=== PATIENT | male | born 1950 | race Caucasian/White ===

== ENCOUNTER 2020-01-31 16:05 | Emergency (ER) | payer MEDICARE ==
[2020-01-31] MEDS ORDERED: PANTOPRAZOLE 40 MG/10 ML VIAL IVP STA (16:20)
[2020-01-31] MEDS ORDERED: SODIUM CHLORIDE 0.9% 1,000 ML IV STA (16:20)
[2020-01-31] MEDS ORDERED: ONDANSETRON 4 MG/2 ML VIAL IVP STA (16:20)
[2020-01-31] MEDS ORDERED: METOCLOPRAMIDE 5 MG/ML 2 ML VIAL IVP STA (16:26)
[2020-01-31] MEDS ORDERED: diphenhydrAMINE 50 MG/ML 1 ML VIAL IVP STA (16:26)
--- NOTE | 2020-01-31 16:31 | ED ---
Nausea/Vomiting/Diarrhea HPI - General Chief complaint: Nausea/Vomiting/Diarrhea Stated complaint: Nausea, weakness Time Seen by Provider: 01/31/20 16:12 Source: patient, EMS Mode of arrival: EMS Limitations: no limitations - History of Present Illness Initial comments: Patient is 69-year-old male presenting to the emergency Department with chief complaint of nausea or vomiting. Patient reports he developed nausea with one episode of nonbilious, nonbloody diarrhea half hour after he ate at [facility] [employer]. Patient states she has some chili dogs at around 1400. Patient reports on the way home he developed some nausea and some sweats which was followed by vomiting. Patient reports he went to an urgent care and then was brought to emergency Department with any movements. Patient states she was given some medication in the ambulance but he is still slightly nauseous. He denies any chest pain, shortness of breath, abdominal pain, diarrhea. Denies any hematuria, hematochezia or melena. Denies any lightheadedness, dizziness, one- sided weakness or paresthesias, visual changes. Reports history of colectomy many years ago following complications of diverticulitis. - Related Data Home Medications Medication Instructions Recorded Confirmed Clopidogrel [Plavix] 75 mg PO DAILY 11/18/13 04/26/15 Eplerenone 25 mg PO DAILY 11/18/13 04/26/15 Metoprolol Succinate [Toprol XL] 50 mg PO DAILY 11/18/13 04/26/15 Simvastatin [Zocor] 20 mg PO HS 11/18/13 04/26/15 Timolol [Betimol] 5 ml OP BID 11/18/13 04/26/15 lisinopriL 30 mg PO DAILY 11/18/13 04/26/15 Previous Rx's Medication Instructions Recorded Amoxicillin/Potassium Clav 1 each PO Q12HR #20 tab 11/18/13 [Augmentin 875-125 Tablet] Ondansetron Odt [Zofran Odt] 4 mg PO Q8HR PRN #14 tab 01/31/20 Allergies Allergy/AdvReac Type Severity Reaction Status Date / Time No Known Allergies Allergy Verified 04/26/15 14:24 Review of Systems ROS Statement: Those systems with pertinent positive or pertinent negative responses have been documented in the HPI. ROS Other: All systems not noted in ROS Statement are negative. Past Medical History Past Medical History: Coronary Artery Disease (CAD), CVA/TIA, Hyperlipidemia, Hypertension History of Any Multi-Drug Resistant Organisms: None Reported Past Surgical History: Cholecystectomy, Orthopedic Surgery Additional Past Surgical History / Comment(s): lens implants, section of lg intestine removed Past Psychological History: No Psychological Hx Reported Smoking Status: Former smoker Past Alcohol Use History: None Reported Past Drug Use History: None Reported General Exam Limitations: no limitations General appearance: alert, in no apparent distress Head exam: Present: atraumatic, normocephalic, normal inspection Eye exam: Present: normal appearance, PERRL, EOMI Pupils: Present: normal accommodation ENT exam: Present: normal exam, normal oropharynx, mucous membranes moist Neck exam: Present: normal inspection, full ROM. Absent: tenderness Respiratory exam: Present: normal lung sounds bilaterally. Absent: respiratory distress, wheezes, rales Cardiovascular Exam: Present: regular rate, normal rhythm, normal heart sounds GI/Abdominal exam: Present: soft, normal bowel sounds. Absent: distended, tenderness, guarding, rebound, rigid, diminished bowel sounds, hyperactive bowel sounds, organomegaly, mass, bruit, pulsatile mass, hernia Extremities exam: Present: normal inspection, full ROM, normal capillary refill, other (+2 ulnar and radial pulses bilaterally.). Absent: tenderness Back exam: Present: normal inspection, full ROM. Absent: tenderness, CVA tenderness (R), CVA tenderness (L), paraspinal tenderness, vertebral tenderness Neurological exam: Present: alert, oriented X3 Psychiatric exam: Present: normal affect, normal mood Skin exam: Present: warm, dry, intact, normal color Course Vital Signs 01/31/20 16:09 Temperature 97.9 F Pulse Rate 61 Respiratory 18 Rate Blood Pressure 134/62 O2 Sat by Pulse 97 Oximetry Medical Decision Making - Medical Decision Making Patient is 69-year-old male presenting to the emergency room with a chief complaint of nausea or vomiting. On exam patient has no abdominal, back pain chest pain shortness of breath. Patient has developed the symptoms after he ate some chili dogs the cornea on. Patient was given antiemetics and fluids. Reevaluation patient reports improvement of symptoms. States he feels comfortable going home. CBC CMP and UA are unremarkable. Strict return parameters were thoroughly discussed with patient is worsening agreeable. Case discussed physician. - Lab Data Result diagrams: 01/31/20 16:23 01/31/20 16:23 Lab Results 01/31/20 01/31/20 01/31/20 Range/Units 16:23 16:23 16:28 WBC 7.5 (3.8-10.6) k/uL RBC 4.33 (4.30-5.90) m/uL Hgb 12.7 L (13.0-17.5) gm/dL Hct 36.9 L (39.0-53.0) % MCV 85.3 (80.0-100.0) fL MCH 29.2 (25.0-35.0) pg MCHC 34.2 (31.0-37.0) g/dL RDW 12.6 (11.5-15.5) % Plt Count 164 (150-450) k/uL Neutrophils % 70 % Lymphocytes % 21 % Monocytes % 6 % Eosinophils % 2 % Basophils % 1 % Neutrophils # 5.2 (1.3-7.7) k/uL Lymphocytes # 1.6 (1.0-4.8) k/uL Monocytes # 0.4 (0-1.0) k/uL Eosinophils # 0.1 (0-0.7) k/uL Basophils # 0.0 (0-0.2) k/uL Sodium 137 (137-145) mmol/L Potassium 4.1 (3.5-5.1) mmol/L Chloride 106 (98-107) mmol/L Carbon Dioxide 26 (22-30) mmol/L Anion Gap 5 mmol/L BUN 19 (9-20) mg/dL Creatinine 0.88 (0.66-1.25) mg/dL Est GFR (CKD-EPI)AfAm >90 (>60 ml/min/1.73 sqM) Est GFR (CKD-EPI)NonAf 87 (>60 ml/min/1.73 sqM) Glucose 135 H (74-99) mg/dL Calcium 9.2 (8.4-10.2) mg/dL Total Bilirubin 0.6 (0.2-1.3) mg/dL AST 29 (17-59) U/L ALT 17 (4-49) U/L Alkaline Phosphatase 56 (38-126) U/L Total Protein 6.4 (6.3-8.2) g/dL Albumin 3.9 (3.5-5.0) g/dL Lipase 112 (23-300) U/L Urine Color Yellow Urine Appearance Clear (Clear) Urine pH 5.5 (5.0-8.0) Ur Specific [place] 1.026 (1.001-1.035) Urine Protein Negative (Negative) Urine Glucose (UA) Negative (Negative) Urine Ketones Negative (Negative) Urine Blood Negative (Negative) Urine Nitrite Negative (Negative) Urine Bilirubin Negative (Negative) Urine Urobilinogen <2.0 (<2.0) mg/dL Ur Leukocyte Esterase Negative (Negative) - EKG Data EKG Comments: Sinus rhythm, right bundle branch block. Ventricular rate 62, AL 198, QRS 150, QTC 460. Disposition Clinical Impression: Food poisoning, Nausea & vomiting, Gastritis Disposition: HOME SELF-CARE Condition: Stable Instructions (If sedation given, give patient instructions): Acute Nausea and Vomiting (ED) Additional Instructions: Drink lots of fluids. Take medication as directed. Return to emergency depar tment if symptoms worsen. Prescriptions: Ondansetron Odt [Zofran Odt] 4 mg PO Q8HR PRN #14 tab PRN Reason: Nausea Is patient prescribed a controlled substance at d/c from ED?: No Referrals: None,Stated [Primary Care Provider] - 1-2 days Time of Disposition: 17:24
[2020-01-31 16:33] LABS: Basophils % (A) 1 %; Eosinophils # (A) 0.1 k/uL (0-0.7); Eosinophils % (A) 2 %; HCT 36.9 % (39.0-53.0); HGB 12.7 gm/dL (13.0-17.5); Lymphocytes # (A) 1.6 k/uL (1.0-4.8); Lymphocytes % (A) 21 %; MCH 29.2 pg (25.0-35.0); MCHC 34.2 g/dL (31.0-37.0); MCV 85.3 fL (80.0-100.0); Mean Platelet Volume 7.4; Monocytes # (A) 0.4 k/uL (0-1.0); Monocytes % (A) 6 %; Neutrophils # (A) 5.2 k/uL (1.3-7.7); Neutrophils % (A) 70 %; Platelet Count 164 k/uL (150-450); RBC 4.33 m/uL (4.30-5.90); RDW 12.6 % (11.5-15.5); WBC 7.5 k/uL (3.8-10.6)
[2020-01-31 16:41] LABS: ALT 17 U/L (4-49); AST 29 U/L (17-59); African American GFR (CKD) >90 (>60 ml/min/1.73 sqM); Albumin 3.9 g/dL (3.5-5.0); Alkaline Phosphatase 56 U/L (38-126); Anion Gap 5 mmol/L; Blood Urea Nitrogen 19 mg/dL (9-20); Calcium 9.2 mg/dL (8.4-10.2); Carbon Dioxide 26 mmol/L (22-30); Chloride 106 mmol/L (98-107); Glucose 135 mg/dL (74-99); Non-African American GFR(CKD) 87 (>60 ml/min/1.73 sqM); Potassium 4.1 mmol/L (3.5-5.1); Sodium 137 mmol/L (137-145); Total Bilirubin 0.6 mg/dL (0.2-1.3); Total Protein 6.4 g/dL (6.3-8.2)
[2020-01-31 16:43] LABS: Appearance,Urine Clear (Clear); Bilirubin,Urine Negative (Negative); Blood,Urine Negative (Negative); Color,Urine Yellow; Glucose,Urine (UA) Negative (Negative); Ketones,Urine Negative (Negative); Leukocyte Esterase,Urine Negative (Negative); Nitrite,Urine Negative (Negative); PH, Urine 5.5 (5.0-8.0); Protein,Urine Negative (Negative); Specific Gravity,Urine 1.026 (1.001-1.035); Urobilinogen,Urine <2.0 mg/dL (<2.0)
[2020-01-31 17:39] VITALS: BP 141/72; PULSE 72; RESP 19; TEMP 98
== END 2020-01-31 17:39 | disposition home or self-care (01) ==
LOC: EC 16:05
DX: K29.70 Gastritis, unspecified, without bleeding (principal); A05.9 Bacterial foodborne intoxication, unspecified; I25.10 Atherosclerotic heart disease of native coronary artery without angina pectoris; E78.5 Hyperlipidemia, unspecified; I10 Essential (primary) hypertension; Z79.02 Long term (current) use of antithrombotics/antiplatelets; Z79.899 Other long term (current) drug therapy; Z86.73 Personal history of transient ischemic attack (TIA), and cerebral infarction without residual deficits; Z90.49 Acquired absence of other specified parts of digestive tract; Z87.891 Personal history of nicotine dependence
CPT/HCPCS: 36415; 93005; 80053; 83690; 85025; 81003; 99285; 96374; 96375 ×3; 96361; J1200; J2765; C9113